=== PATIENT | male | born 1950 ===

== ENCOUNTER 2022-09-04 11:28 | Outpatient (CLI) | payer MEDICARE, SELFPAY ==
--- NOTE | ~2022-09-04 | DEXA_ITS ---
Bone Density Report Name: BHUMI MIRELES Age: 71 Sex: Male Ethnicity: White Date of : 1950 Indication: screening for osteoporosis; cancer; Referring Provider: KORY MON Study: Bone densitometry was performed. Exam Date: September 04, 2022 Accession number: [id number] Bone Density: Region BMD T-score Z-score Classification AP Spine(L1-L4) 1.435 3.1 4.1 Normal Femoral Neck (Left) 0.801 -0.9 0.3 Normal Total Hip (Left) 1.033 0.0 0.8 Normal Femoral Neck (Right) 0.876 -0.4 0.9 Normal Total Hip (Right) 1.106 0.5 1.2 Normal Total Hip Mean 1.070 0.3 1.0 Normal World Health Organization criteria for BMD impression classify patients as: Normal (T-score at or above -1.0), Osteopenia (T-score between -1.0 and -2.5), or Osteoporosis (T-score at or below -2.5). 10-year Fracture Risk: FRAX not reported because: All T-scores for Spine Total, Hip Total, Femoral Neck at or above -1.0 Clinical Information Provided by Patient: Has used the following medications: Vitamin D, Calcium Has the following medical conditions: Cancer Patient maximum height was 69 Drinks caffeinated beverages Impression: The patient has normal bone mass. Discussion: BONE DENSITY IS ABOVE THE MINIMUM DESIRABLE LEVEL AT ALL SKELETAL SITES TESTED. This patient?s bone mineral density is above the minimum desirable level (T-score -1.0 or better) at all sites measured. The patient should follow a healthful lifestyle (good nutrition with adequate calcium and vitamin D, and appropriate weight-bearing exercise). Follow-Up: Consider repeating this study in 5 years or sooner if there is some new clinical indication. Reported by: MAXIMUS on 09/04/2022 11:50:00 AM. Reviewed, dictated and finalized at location [facility]
== END 2022-09-04 11:29 | disposition home or self-care (01) ==
LOC: ANHIMG 11:31
PROVIDERS: PCP Nurse Practitioner Adult Health; Visit Provider Nurse Practitioner Adult Health
DX: M85.89 Other specified disorders of bone density and structure, multiple sites (principal)
CPT/HCPCS: 77080